=== PATIENT | male | born 1965 | race Caucasian/White ===

== ENCOUNTER 2018-01-17 20:58 | Emergency (ER) | payer OTHER ==
[~2018-01-17] VITALS: Ht 182.9 cm; Wt 89.2 kg
[2018-01-17 21:16] VITALS: TEMP 36.7; Ht 182.9 cm; Wt 89.2 kg
--- NOTE | 2018-01-17 22:18 | DIAGNOSTIC IMAGING REPORT ---
HEAD WITHOUT CONTRAST (CT) CLINICAL HISTORY: 52 years-old Male with Fall, head pain, left upper and lower extremity pain. Acute posttraumatic head injury with fall. TECHNIQUE: Multiple axial CT images of the head were obtained without contrast. A dose lowering technique was utilized adhering to the principles of ALARA. CT DOSE: 537.48 mGy.cm COMPARISON: None. FINDINGS: No acute intracranial hemorrhage, midline shift, intracranial mass, hydrocephalus, territorial ischemia or abnormal extra-axial collection. Cerebral vascular calcifications are noted. The calvarium is intact. The paranasal sinuses, mastoid air cells, and middle ear cavities are clear. IMPRESSION: No acute intracranial abnormality. The above report was generated using voice recognition software. It may contain grammatical, syntax or spelling errors. Electronically signed by: Medardo Eugene M.D. 01/17/2018 10:17 PM Dictated Date/Time: 01/17/2018 10:15 PM
--- NOTE | 2018-01-17 22:22 | EMERGENCY ROOM VISIT NOTE ---
History First contact with patient: 21:20 Chief Complaint: FALL Stated Complaint: FALL, HIT ELBOW, POSSIBLY HEAD, DOES NOT REMEMBER History of Present Illness The patient is a 52 year old male who presents to the Emergency Room via private vehicle with complaints of "fall, elbow, possibly had, does not remember ". The patient states that earlier today around 1999 he was at [employer], walking towards the bathroom when he notes that he slipped on the wet floor. He fell backwards landing on his left side. He does not think he lost consciousness but is not 100% sure. He notes pain in the left elbow, left arm, and left thigh region. He rates his overall pain currently as a 3/10. He notes that he now feels dizzy, and not quite right. He was concerned therefore prompting his arrival here today. Review of Systems A complete 6-point Review of Systems was discussed with the patient, with pertinent positives and negatives listed in the History of Present Illness. All remaining Review of Systems questions can be considered negative unless otherwise specified. Past Medical/Surgical History No pertinent. Family History No pertinent. Social History Smoking Status: Former Smoker Patient is employed and lives about [place] from here. Current/Historical Medications No Active Prescriptions or Reported Meds Physical Exam Vital Signs Date Time Temp Pulse Resp B/P (MAP) Pulse Ox O2 Delivery O2 Flow Rate FiO2 01/17/18 23:40 71 18 130/94 97 01/17/18 21:16 36.7 81 18 134/92 98 Room Air Physical Exam VITAL SIGNS - Vital signs and nursing notes were reviewed. Stable. GENERAL -52-year-old male appearing his stated age who is in no acute distress. He does not appear intoxicated. Communicates well with provider and answers questions appropriately. SKIN - Without rashes. No breaks in the integument appreciated. No bony deformity per HEAD - NC/AT. EYES - PERRL with EOMI bilaterally. Sclera anicteric. Palpebral conjunctiva pink and moist with no injection noted. EARS - No deformities of external structures noted on gross examination bilaterally. No hemotympanum. Cerumen noted bilaterally. NOSE - Midline and without cyanosis. No epistaxis or purulent drainage noted. MOUTH/OROPHARYNX - Without perioral cyanosis. Buccal mucosa pink and moist and without leukoplakia. Tongue midline with equal elevation of palate bilaterally. No tonsillar hypertrophy, erythema, or exudates noted. Fair dentition noted. NECK - Neck with FROM. No C-spine tenderness LUNGS - Chest wall symmetric without accessory muscle use, intercostals retractions, or central cyanosis. Normal vesicular breath sounds CTA B/L. No wheezes, rales, or rhonchi appreciated. CARDIAC - RRR with S1/S2. No murmur, rubs, or gallops appreciated. EXTREMITIES - No clubbing or peripheral cyanosis. No pretibial edema present. Tenderness noted upon palpation of the entire left upper extremity, with focal bony tenderness of the left olecranon process and left fifth digit just distal to the PIP joint. No other direct areas of tenderness noted in the upper extremities. In regard to the lower extremity there is tenderness of the left thigh region but no bony tenderness. +5/5 strength noted in UE/LE bilaterally. NEUROLOGIC - Cranial nerves II through XII grossly intact. Sensory intact to light touch throughout. PSYCH - A&O, and cooperates fully with examiner. Pt is very pleasant and interacts well with examiner. Medical Decision & Procedures ER Provider Diagnostic Interpretation: HEAD WITHOUT CONTRAST (CT) CLINICAL HISTORY: 52 years-old Male with Fall, head pain, left upper and lower extremity pain. Acute posttraumatic head injury with fall. TECHNIQUE: Multiple axial CT images of the head were obtained without contrast. A dose lowering technique was utilized adhering to the principles of ALARA. CT DOSE: 537.48 mGy.cm COMPARISON: None. FINDINGS: No acute intracranial hemorrhage, midline shift, intracranial mass, hydrocephalus, territorial ischemia or abnormal extra-axial collection. Cerebral vascular calcifications are noted. The calvarium is intact. The paranasal sinuses, mastoid air cells, and middle ear cavities are clear. IMPRESSION: No acute intracranial abnormality. The above report was generated using voice recognition software. It may contain grammatical, syntax or spelling errors. Electronically signed by: Medardo Eugene M.D. 01/17/2018 10:17 PM Dictated Date/Time: 01/17/2018 10:15 PM L HUMERUS MIN 2 VIEWS ROUTINE CLINICAL HISTORY: Fall, head pain, left upper and lower extremity pain trauma. Pain. COMPARISON: None. DISCUSSION: The bones and joint spaces appear intact. There is no evidence of fracture, dislocation or bony disease. There is no evidence for soft tissue swelling. IMPRESSION: Negative study. The above report was generated using voice recognition software. It may contain grammatical, syntax or spelling errors. Electronically signed by: Amrit Allen M.D. 01/18/2018 6:36 AM Dictated Date/Time: 01/18/2018 6:35 AM L FOREARM 2 VIEWS ROUTINE CLINICAL HISTORY: Fall, head pain, left upper and lower extremity pain trauma. Pain. COMPARISON: None. DISCUSSION: The bones and joint spaces appear intact. There is no evidence of fracture, dislocation or bony disease. There is no evidence for soft tissue swelling. IMPRESSION: Negative study. The above report was generated using voice recognition software. It may contain grammatical, syntax or spelling errors. Electronically signed by: Amrit Allen M.D. 01/18/2018 6:49 AM Dictated Date/Time: 01/18/2018 6:48 AM L FEMUR 2 VIEWS ROUTINE CLINICAL HISTORY: Fall, head pain, left upper and lower extremity pain trauma. Pain. COMPARISON: None. DISCUSSION: The bones and joint spaces appear intact. There is no evidence of fracture, dislocation or bony disease. There is no evidence for soft tissue swelling. IMPRESSION: Negative study. The above report was generated using voice recognition software. It may contain grammatical, syntax or spelling errors. Electronically signed by: Amrit Allen M.D. 01/18/2018 6:39 AM Dictated Date/Time: 01/18/2018 6:38 AM [~ rep ct add3]] L HAND MIN 3 VIEWS ROUTINE CLINICAL HISTORY: Fall, head pain, left upper and lower extremity pain trauma. Pain. COMPARISON: None. DISCUSSION: The bones and joint spaces appear intact. There is no evidence of fracture, dislocation or bony disease. There is no evidence for soft tissue swelling. IMPRESSION: Negative study. The above report was generated using voice recognition software. It may contain grammatical, syntax or spelling errors. Electronically signed by: Amrit Allen M.D. 01/18/2018 6:51 AM Dictated Date/Time: 01/18/2018 6:49 AM Medical Decision Patient was seen and evaluated as above in room D6. Review was performed of nursing notes and vital signs. After obtaining a thorough history and physical examination the above work up was performed. He presents to us today status post fall at a local [employer]. He is nontoxic on examination. Secondary to mechanism of injury, as well as him not being sure if he lost consciousness with certainty I do believe that CT scan of the head is warranted. GCS 15. Results as above. Incidental discussed with patient. He was given a copy of the report and is to follow with the family doctor regarding the calcifications. X-rays were also obtained of the extremities and read by myself and the radiologist. No acute fracture dislocation. He was placed in a arm sling for the left arm as well as a left finger splint. He is to follow with family doctor pain persists/orthopedics or return with worsening. The patient was educated upon management, had questions answered prior to discharge , and was discharged home in good condition. In the evaluation and treatment of this patient, the following differential diagnoses were considered: Concussion, Contrecoup Injury, Brain Tumor, Depression, Encephalitis, Hypothyroidism, Meningitis, CVA, TIA, Migraine, Cluster Headache, Intracranial Abnormality, Intracranial Hemorrhage, Subdural Hematoma, Subarachnoid Hemorrhage, Hydrocephalus, Forearm Contusion, Radial Head Fracture, Radial Styloid Process Fracture, Ulnar Styloid Process Fracture, Radius Fracture, Ulnar Fracture, Tennis Elbow, Golfer's Elbow, or Elbow Fracture , Hip Fracture, Hip Dislocation, Greater Trochanteric Bursitis, Musculoskeletal Pain, Lumbar Radiculopathy. Impression Primary Impression: Fall Additional Impression: Contusion of multiple sites Departure Information Dispostion Home / Self-Care Condition GOOD Prescriptions No Active Prescriptions or Reported Meds Referrals No Doctor, Assigned (PCP) Silver Alcocer M.D. Patient Instructions My [facility] Additional Instructions You have been treated in the Emergency Department for Elbow Pain, arm pain, and fall. For pain control, you can use the following [id number] medicines (if >12 yo): - Regular strength (325mg/tab) Tylenol (acetaminophen) 2 tabs every 4-6 hours as needed. Do not exceed 12 tablets in a 24 hour period. Avoid taking more than 3 grams (3000 mg) of Tylenol per day. This includes any other sources of acetaminophen you may take on a regular basis. - Regular strength (200 mg/tab) Advil (ibuprofen) 1-2 tabs every 4-6 hours as needed. Do not exceed a dose of 3200 mg per day. If this is a recent injury (<24 hrs), ice can be applied to the area of pain for the first 3 days to help decrease pain and inflammation. You have been provided the number for an Orthopaedic Surgeon. You should call this number as soon as possible to establish a follow-up visit from today's Emergency Department visit. You may also follow up with the family doctor. Keep the sling/splint in place until evaluated by Orthopedics/pain free or see family doctor. Return to the Emergency Department if your current symptoms worsen despite treatment course outlined above, or if you develop any of the following symptoms : intractable pain despite aforementioned treatment course or new onset of numbness or tingling of the arm. Problem Qualifiers
[2018-01-17 23:40] VITALS: BP 130/94; PULSE 71; O2SAT 97
--- NOTE | 2018-01-18 06:37 | DIAGNOSTIC IMAGING REPORT ---
L HUMERUS MIN 2 VIEWS ROUTINE CLINICAL HISTORY: Fall, head pain, left upper and lower extremity pain trauma. Pain. COMPARISON: None. DISCUSSION: The bones and joint spaces appear intact. There is no evidence of fracture, dislocation or bony disease. There is no evidence for soft tissue swelling. IMPRESSION: Negative study. The above report was generated using voice recognition software. It may contain grammatical, syntax or spelling errors. Electronically signed by: Amrit Allen M.D. 01/18/2018 6:36 AM Dictated Date/Time: 01/18/2018 6:35 AM
--- NOTE | 2018-01-18 06:40 | DIAGNOSTIC IMAGING REPORT ---
L FEMUR 2 VIEWS ROUTINE CLINICAL HISTORY: Fall, head pain, left upper and lower extremity pain trauma. Pain. COMPARISON: None. DISCUSSION: The bones and joint spaces appear intact. There is no evidence of fracture, dislocation or bony disease. There is no evidence for soft tissue swelling. IMPRESSION: Negative study. The above report was generated using voice recognition software. It may contain grammatical, syntax or spelling errors. Electronically signed by: Amrit Allen M.D. 01/18/2018 6:39 AM Dictated Date/Time: 01/18/2018 6:38 AM
--- NOTE | 2018-01-18 06:50 | DIAGNOSTIC IMAGING REPORT ---
L FOREARM 2 VIEWS ROUTINE CLINICAL HISTORY: Fall, head pain, left upper and lower extremity pain trauma. Pain. COMPARISON: None. DISCUSSION: The bones and joint spaces appear intact. There is no evidence of fracture, dislocation or bony disease. There is no evidence for soft tissue swelling. IMPRESSION: Negative study. The above report was generated using voice recognition software. It may contain grammatical, syntax or spelling errors. Electronically signed by: Amrit Allen M.D. 01/18/2018 6:49 AM Dictated Date/Time: 01/18/2018 6:48 AM
--- NOTE | 2018-01-18 06:53 | DIAGNOSTIC IMAGING REPORT ---
L HAND MIN 3 VIEWS ROUTINE CLINICAL HISTORY: Fall, head pain, left upper and lower extremity pain trauma. Pain. COMPARISON: None. DISCUSSION: The bones and joint spaces appear intact. There is no evidence of fracture, dislocation or bony disease. There is no evidence for soft tissue swelling. IMPRESSION: Negative study. The above report was generated using voice recognition software. It may contain grammatical, syntax or spelling errors. Electronically signed by: Amrit Allen M.D. 01/18/2018 6:51 AM Dictated Date/Time: 01/18/2018 6:49 AM
== END 2018-01-17 23:40 | disposition home or self-care (01) ==
LOC: C.EDB 21:00 → C.EDD 23:40
DX: T14.8XXA Other injury of unspecified body region, initial encounter (principal); Z87.891 Personal history of nicotine dependence; W01.0XXA Fall on same level from slipping, tripping and stumbling without subsequent striking against object, initial encounter; Y92.511 Restaurant or cafe as the place of occurrence of the external cause